=== PATIENT | male | born 1965 | race African-American/Black ===

== ENCOUNTER → 2016-10-05 09:34 | Emergency (ER) | payer SELFPAY ==
[2016-10-05 10:59] VITALS: BP 170/80
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
== END | disposition home or self-care (01) ==
LOC: ED 09:34
DX: S00.83XA Contusion of other part of head, initial encounter (principal); S00.511A Abrasion of lip, initial encounter; I10 Essential (primary) hypertension; R51 Headache; W19.XXXA Unspecified fall, initial encounter; Y93.9 Activity, unspecified; Y92.9 Unspecified place or not applicable; Z87.891 Personal history of nicotine dependence
CPT/HCPCS: 99281

== ENCOUNTER 2016-10-11 14:05 | Emergency (ER) | payer SELFPAY ==
--- NOTE | 2016-10-11 16:22 | RAD ---
HISTORY: Bilateral elbow pain COMPARISONS: None VIEWS: 8, Frontal, lateral, and oblique views of the left elbow and of the right elbow FINDINGS: Right: BONE DENSITY: Normal. BONES: There is no displaced fracture. There are enthesophytes of the olecranon. JOINTS: There is no arthropathy. There is no posterior supracondylar fat pad to suggest a joint effusion. ALIGNMENT: There is no dislocation. The alignment is anatomic. SOFT TISSUES: Unremarkable. Left: BONE DENSITY: Normal. BONES: There is no displaced fracture. There are enthesophytes of the olecranon. JOINTS: There is no arthropathy. There is no posterior supracondylar fat pad to suggest a joint effusion. ALIGNMENT: There is no dislocation. The alignment is anatomic. SOFT TISSUES: Unremarkable. OTHER FINDINGS: None. IMPRESSION: MILD DEGENERATIVE CHANGES BILATERALLY. NO ACUTE OSSEOUS INJURY BILATERALLY. IF SYMPTOMS PERSIST, RECOMMEND REPEAT IMAGING.
--- NOTE | 2016-10-11 18:39 | ED ---
Upper Extremity Pain - HPI Summary HPI Summary: 51M presents bilateral elbows pain for a week. 1 week ago fall where he landed on his elbows, pt states pain is still there. He states pain is getting better. He is not taking anything for pain. He denies any numbness or tingling. The left is great than the right. He is right handed. He has full ROM with pain. 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 He was seen last week and had images of his head at that time which was normal. He states his head pain has resolved. - History of Current Complaint Chief Complaint: EDExtremityUpper Stated Complaint: FALL, ELBOW PAIN Time Seen by Provider: 10/11/16 18:31 - Allergies/Home Medications Allergies/Adverse Reactions: Allergies Allergy/AdvReac Type Severity Reaction Status Date / Time No Known Allergies Allergy Verified 07/17/15 18:11 PMH/Surg Hx/FS Hx/Imm Hx Endocrine/Hematology History: Reports: Hx Diabetes Cardiovascular History: Reports: Hx Hypercholesterolemia, Hx Hypertension Respiratory History: Reports: Hx Sleep Apnea - undiagnosed but observed in ED with 5 second apnea & hypoxia History: Denies: Hx Dialysis, Hx Renal Disease Sensory History: Reports: Hx Contacts or Glasses - not with patient Opthamlomology History: Reports: Hx Contacts or Glasses - not with patient - Surgical History Surgery Procedure, Year, and Place: CABG X3 1992 (S/P [facility] [place]) Infectious Disease History: Denies: Traveled Outside the [place] in Last 30 Days - Family History Known Family History: Positive: None, Cardiac Disease, Hypertension, Diabetes - Social History Alcohol Use: Occasionally Substance Use Type: Reports: None Hx Tobacco Use: No Smoking Status (MU): Former Smoker Type: Cigarettes Have You Smoked in the Last Year: No Review of Systems Negative: Fever Negative: Chest Pain Negative: Shortness Of Breath Positive: Myalgia - elbow pain bilateral All Other Systems Reviewed And Are Negative: Yes Physical Exam Triage Information Reviewed: Yes Vital Signs On Initial Exam: Initial Vitals Temp Pulse Resp BP Pulse Ox 97.6 F 80 18 162/95 98 10/11/16 14:23 10/11/16 14:23 10/11/16 14:23 10/11/16 14:23 10/11/16 14:23 Vital Signs Reviewed: Yes Appearance: Positive: Well-Appearing Skin: Positive: Warm, Dry Head/Face: Positive: Normal Head/Face Inspection Eyes: Positive: Normal, Conjunctiva Clear Respiratory/Lung Sounds: Positive: Clear to Auscultation, Breath Sounds Present Cardiovascular: Positive: Normal, RRR Musculoskeletal: Positive: Strength/ROM Intact - elbows with pain, Other - tenderness over bilateral elbow, good pulses, no edema, capillary refill<2secs Diagnostics - Vital Signs Vital Signs Temp Pulse Resp BP Pulse Ox 10/11/16 14:23 97.6 F 80 18 162/95 98 - Laboratory Lab Statement: Any lab studies that have been ordered have been reviewed, and results considered in the medical decision making process. - Radiology elbow Xray Interpretation: No Acute Changes - degenerative changes Radiology Interpretation Completed By: Radiologist Course/Dx - Course Course Of Treatment: 51M presents bilateral elbows pain for a week. 1 week ago fall where he landed on his elbows, pt states pain is still there. He states pain is getting better. He is not taking anything for pain. He denies any numbness or tingling. The left is great than the right. He is right handed. He has full ROM with pain. xray normal. told to use RICE. patient understands and agrees with plan. - Diagnoses Differential Diagnosis/HQI/PQRI: Positive: Fracture (Closed), Strain, Sprain Provider Diagnoses: Elbow contusion Discharge - Discharge Plan Condition: Good Disposition: HOME Forms: *Work Release Referrals: Palomo Javed MD [Primary Care Provider] - Additional Instructions: Take Tylenol or ibuprofen every 6 hours as needed for pain Apply ice, rest, elevate Follow up with primary care physician within 5 days Return to ED if develop any new or worsening symptoms
[2016-10-11 18:40] VITALS: BP 179/97
== END 2016-10-11 18:45 | disposition home or self-care (01) ==
LOC: ED 14:05
DX: S50.02XA Contusion of left elbow, initial encounter (principal); S50.01XA Contusion of right elbow, initial encounter; W19.XXXA Unspecified fall, initial encounter; Y93.9 Activity, unspecified; Y92.9 Unspecified place or not applicable; E11.9 Type 2 diabetes mellitus without complications; E78.00 Pure hypercholesterolemia, unspecified; I10 Essential (primary) hypertension; Z95.1 Presence of aortocoronary bypass graft; Z87.891 Personal history of nicotine dependence
CPT/HCPCS: 99281

== ENCOUNTER 2017-05-12 06:55 | Emergency (ER) | payer BC ==
--- NOTE | 2017-05-12 08:09 | RAD ---
Indication: Fell and struck back of head. On Brilinta. Comparison: No relevant prior exams available on the [facility] PACS for comparison. Technique: Noncontrast CT vertex of skull through foramen magnum. Report: Small region of chronic appearing encephalomalacia at the RIGHT frontal lobe at the level of the kimble radiata and centrum semiovale. Negative for mass effect. Unremarkable cerebral sulci, ventricles, and basal cisterns. Negative for underwood matter white matter obscuration associated with mass effect or intra or extra-axial hemorrhage. Negative for calvarial or skull base fracture. Grossly clear paranasal sinuses and mastoid air spaces. Negative for scalp hematoma. IMPRESSION: 1. No CT evidence for traumatic brain injury or acute intracranial process. 2. 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
--- NOTE | 2017-05-12 08:12 | RAD ---
Indication: Fall, back pain. CT of the lumbar spine was obtained in the axial plane. Sagittal and coronal reconstructed images were obtained. The visualized sacrum demonstrates no fracture. Sacroiliac joints demonstrates mild degenerative changes. The vertebral bodies appear normal in height. No evidence of compression fracture is noted. Minimal broad-based protrusion at L5-S1 indents the epidural fat. No foraminal stenosis is noted. At L4-L5 broad-based protrusion flattens the thecal sac. Mild facet hypertrophy is noted. No central or foraminal stenosis is noted. At L3-L4 degenerative disc disease is noted with spondylytic ridge. No focal protrusion is noted. At L2-L3 no disc protrusion is noted. No central or foraminal stenosis is noted. At T12-L1 and T11-T12 no fracture is noted. Disc spaces all well-preserved. IMPRESSION: Degenerative disc disease at L3-L4, L4-L5 and L5-S1. No fracture of the lumbar spine is noted.
--- NOTE | 2017-05-12 08:13 | RAD ---
INDICATION: Fell and hit back of head. COMPARISON: No relevant prior exams available on the [facility] PACS for comparison. TECHNIQUE: Multidetector CT images foramen magnum to lung apices without contrast. Multiplanar reformation. REPORT: Normal vertebral alignment accounting for exam positioning without spondylolisthesis or subluxation at any level. Negative for cervical vertebral body or posterior element fracture. Negative for paravertebral hematoma. Multilevel mild vertebral endplate osteophytosis and facet joint osteoarthritis. At C2-C3 uncinate process spurring and facet joint osteoarthritis results in mild LEFT foraminal stenosis. IMPRESSION: No CT evidence for traumatic cervical spine injury.
--- NOTE | 2017-05-12 08:20 | RAD ---
Indication: Left elbow pain and swelling. 4 views of left elbow demonstrates no fracture. No joint effusion is noted. IMPRESSION: No fracture of left elbow is noted.
[2017-05-12 09:55] VITALS: BP 129/80
--- NOTE | 2017-05-12 10:34 | ED ---
Power Bailey Stephanie, scribed for Ron Carrillo MD on 05/12/17 at 0724 . Back Pain - HPI Summary HPI Summary: The pt is a 51 y/o M presenting to the ED with c/o lower back pain that occurred at 06:30 today s/p slip on ice. The pt states he fell backwards onto his back. The lower back pain is located near the buttock. Symptoms include DURAND and L elbow pain. The pt denies LOC, abd pain and SOB. The pt states he is on blood thinners. - History of Current Complaint Chief Complaint: EDBackInjuryPain Stated Complaint: FALL Time Seen by Provider: 05/12/17 07:10 Hx Obtained From: Patient Onset/Duration: Sudden Onset - 06:30, Still Present Onset/Duration: Started Hours Ago - 1, Still Present Timing: Constant Back Pain Location: Is Discrete @ - lower back near buttock Severity Currently: Moderate Pain Intensity: 9 Pain Scale Used: 0-10 Numeric Aggravating Symptom(s): Movement Alleviating Symptom(s): Nothing Associated Signs And Symptoms: Positive: Swelling - L elbow, Other - DURAND. Negative: Abdominal Pain - Allergies/Home Medications Allergies/Adverse Reactions: Allergies Allergy/AdvReac Type Severity Reaction Status Date / Time No Known Allergies Allergy Verified 07/17/15 18:11 PMH/Surg Hx/FS Hx/Imm Hx Endocrine/Hematology History: Reports: Hx Diabetes Cardiovascular History: Reports: Hx Hypercholesterolemia, Hx Hypertension Respiratory History: Reports: Hx Sleep Apnea - undiagnosed but observed in ED with 5 second apnea & hypoxia History: Denies: Hx Dialysis, Hx Renal Disease Sensory History: Reports: Hx Contacts or Glasses - not with patient Opthamlomology History: Reports: Hx Contacts or Glasses - not with patient - Surgical History Surgery Procedure, Year, and Place: CABG X3 1992 (S/P [facility]) Infectious Disease History: No Infectious Disease History: Denies: Traveled Outside the [place] in Last 30 Days - Family History Known Family History: Positive: Cardiac Disease, Hypertension, Diabetes - Social History Occupation: Employed Full-time Lives: With Family Alcohol Use: Occasionally Substance Use Type: Reports: None Hx Tobacco Use: No Smoking Status (MU): Former Smoker Type: Cigarettes Have You Smoked in the Last Year: No Review of Systems Negative: Fever Negative: Shortness Of Breath Negative: Abdominal Pain Positive: Other - lower back pain, L elbow pain Positive: Headache All Other Systems Reviewed And Are Negative: Yes Physical Exam - Summary Physical Exam Summary: General: well-appearing, no pain distress Skin: warm, color reflects adequate perfusion, dry Head: normal, no skin laceration on occipital region Eyes: EOMI, AGGIE ENT: normal Neck: supple, nontender to palpation Respiratory: CTA, breath sounds present Cardiovascular: RRR Abdomen: soft, nontender Bowel: present Musculoskeletal: normal, strength/ROM intact, L elbow swollen and tender to palpation Neurological: normal, sensory/motor intact, A&O x3 Psychological: affect/mood appropriate Triage Information Reviewed: Yes Vital Signs On Initial Exam: Initial Vitals Temp Pulse Resp BP Pulse Ox 97.1 F 71 18 142/84 98 05/12/17 06:59 05/12/17 06:59 05/12/17 06:59 05/12/17 06:59 05/12/17 06:59 Vital Signs Reviewed: Yes Diagnostics - Vital Signs Vital Signs Temp Pulse Resp BP Pulse Ox 05/12/17 06:59 97.1 F 71 18 142/84 98 - Laboratory Lab Statement: Any lab studies that have been ordered have been reviewed, and results considered in the medical decision making process. - Radiology Elbow XRay Radiology Interpretation Completed By: Radiologist - No fracture of left elbow is noted. ED physician reviewed report and agrees. - CT Brain CT Interpretation: No Acute Changes CT Interpretation Completed By: Radiologist - 1. No CT evidence for traumatic brain injury or acute intracranial process. 2. 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 ED physician reviewed report and agrees. Cervical Spine CT Interpretation: No Acute Changes CT Interpretation Completed By: Radiologist - No CT evidence for traumatic cervical spine injury. ED physician reviewed report and agrees. Lumbar Spine CT Interpretation: No Acute Changes CT Interpretation Completed By: Radiologist - Degenerative disc disease at L3- L4, L4-L5 and L5-S1. No fracture of the lumbar spine is noted. ED physician reviewed report and agrees. Back Pain Course/Dx - Course Course Of Treatment: BP noted and advised to follow up with PCP. RESULTS DISCUSSED WITH PATIENT. F/U PMD; RETURN IF WORSE. - Diagnoses Provider Diagnoses: Elevated blood pressure reading without diagnosis of hypertension, Head injury , Cervical strain, Low back pain, Left elbow contusion Discharge - Sign-Out/Discharge Documenting (check all that apply): Discharge - Discharge Plan Condition: Stable Disposition: HOME Prescriptions: HYDROcodone/ACETAMIN 5-325 MG* [[place] 5-325 TAB*] 1 tab PO Q4H PRN #20 tab MDD 6 PRN Reason: Pain Patient Education Materials: Cervical Strain (ED), Head Injury (ED), Acute Low Back Pain (ED), Elbow Sprain (ED) Forms: *Work Release Referrals: Palomo Javed MD [Primary Care Provider] - Additional Instructions: FOLLOW UP WITH YOUR DOCTOR. RETURN TO THE EMERGENCY DEPARTMENT FOR ANY WORSENING OF YOUR CONDITION OR QUESTIONS OR CONCERNS. YOUR BLOOD PRESSURE WAS ELEVATED TODAY; FOLLOW UP WITH YOUR PRIMARY CARE DOCTOR WITHIN ONE WEEK. - Billing Disposition and Condition Condition: STABLE Disposition: HOME The documentation as recorded by the Power roblero Stephanie accurately reflects the service I personally performed and the decisions made by me, Ron Carrillo MD.
== END 2017-05-12 10:05 | disposition home or self-care (01) ==
LOC: ED 06:55
DX: S09.90XA Unspecified injury of head, initial encounter (principal); S50.02XA Contusion of left elbow, initial encounter; S16.1XXA Strain of muscle, fascia and tendon at neck level, initial encounter; M54.5 Low back pain; R03.0 Elevated blood-pressure reading, without diagnosis of hypertension; W00.0XXA Fall on same level due to ice and snow, initial encounter; Y92.9 Unspecified place or not applicable; Z87.891 Personal history of nicotine dependence; E11.9 Type 2 diabetes mellitus without complications
CPT/HCPCS: 70450; 72125; 72131; 99284

== ENCOUNTER → 2018-04-20 00:40 | Emergency (ER) | payer BC, OTHER ==
[2018-04-20 00:45] VITALS: BP 155/91
--- NOTE | 2018-04-20 01:14 | ED ---
Adult Trauma - HPI Summary HPI Summary: Patient complains of body aches, back pain, left knee pain status post fall at work 6 days ago. Patient states he slipped and slid into a door. Denies head injury, DURAND, LOC, N/V, vision change, neck pain, CP, SOB, abdominal pain. Pt has been working in the days since. Patient has been taking ibuprofen with some relief. States symptoms are improving. - History of Current Complaint Chief Complaint: EDExtremityLower Stated Complaint: FALL, LEFT KNEE INJURY Time Seen by Provider: 04/20/18 01:02 Hx Obtained From: Patient Mechanism of Injury: Fall Ambulatory at the Scene: Yes Loss of Consciousness: no loss of consciousness Onset/Duration: Started Days Ago Onset of Pain: Immediate Onset Severity: Moderate Current Severity: Moderate Pain Intensity: 6 Pain Scale Used: 0-10 Numeric Location: Back, Extremities Character: Aching Aggravating Factor(s): Movement Alleviating Factor(s): Rest Associated Signs & Symptoms: Positive: Negative - Additional Pertinent History Primary Care Physician: GUILLERMO - Allergy/Home Medications Allergies/Adverse Reactions: Allergies Allergy/AdvReac Type Severity Reaction Status Date / Time No Known Allergies Allergy Verified 04/20/18 00:44 PMH/Surg Hx/FS Hx/Imm Hx Endocrine/Hematology History: Reports: Hx Diabetes Cardiovascular History: Reports: Hx Hypercholesterolemia, Hx Hypertension Respiratory History: Reports: Hx Sleep Apnea - undiagnosed but observed in ED with 5 second apnea & hypoxia History: Denies: Hx Dialysis, Hx Renal Disease Sensory History: Reports: Hx Contacts or Glasses - not with patient Opthamlomology History: Reports: Hx Contacts or Glasses - not with patient Neurological History: Denies: Hx Dementia Psychiatric History: Denies: Hx Autism - Surgical History Surgery Procedure, Year, and Place: CABG X3 1992 (S/P [facility]) Infectious Disease History: No Infectious Disease History: Denies: Traveled Outside the [place] in Last 30 Days - Family History Known Family History: Positive: None, Cardiac Disease, Hypertension, Diabetes - Social History Alcohol Use: Occasionally Substance Use Type: Reports: None Hx Tobacco Use: No Smoking Status (MU): Former Smoker Type: Cigarettes Have You Smoked in the Last Year: No Review of Systems Constitutional: Negative Eyes: Negative ENT: Negative Cardiovascular: Negative Respiratory: Negative Gastrointestinal: Negative Genitourinary: Negative Positive: Arthralgia, Myalgia Skin: Negative Neurological: Negative Psychological: Normal All Other Systems Reviewed And Are Negative: Yes Physical Exam - Summary Physical Exam Summary: Trauma noted to mouth, face, head. Full range of motion of neck and jaw. No tenderness along C-spine, T-spine or L-spine. Tenderness to right lateral trapezius and paraspinal muscles. Mild tenderness to palpation of left knee full range of motion of left knee with minimal pain. No swelling, erythema, ecchymosis, extra warmth noted to left knee joint. She moves all 4 extremities freely with minimal pain. Triage Information Reviewed: Yes Vital Signs On Initial Exam: Initial Vitals Temp Pulse Resp BP Pulse Ox 97.7 F 82 16 155/91 98 04/20/18 00:42 04/20/18 00:42 04/20/18 00:42 04/20/18 00:42 04/20/18 00:42 Vital Signs Reviewed: Yes Appearance: Positive: Well-Appearing Skin: Positive: Warm Head/Face: Positive: Normal Head/Face Inspection Eyes: Positive: Normal ENT: Positive: Normal ENT inspection Dental: Negative: Dental Fracture @, Bleeding Neck: Positive: Supple Respiratory/Lung Sounds: Positive: Clear to Auscultation Cardiovascular: Positive: Normal Abdomen Description: Positive: Nontender Musculoskeletal: Positive: Normal Neurological: Positive: Normal Psychiatric: Positive: Normal AVPU Assessment: Alert - Raz Coma Scale Best Eye Response: 4 - Spontaneous Best Motor Response: 6 - Obeys Commands Best Verbal Response: 5 - Oriented Coma Scale Total: 15 Diagnostics - Vital Signs Vital Signs Temp Pulse Resp BP Pulse Ox 04/20/18 00:42 97.7 F 82 16 155/91 98 - Laboratory Lab Statement: Any lab studies that have been ordered have been reviewed, and results considered in the medical decision making process. Adult Trauma Course/Dx - Course Course Of Treatment: Patient complains of body aches, back pain, left knee pain status post fall at work 6 days ago. Patient states he slipped and slid into a door. Denies head injury, DURAND, LOC, N/V, vision change, neck pain, CP, SOB, abdominal pain. Pt has been working in the days since. Patient has been taking ibuprofen with some relief. States symptoms are improving. Physical exam:Trauma noted to mouth, face, head. Full range of motion of neck and jaw. No tenderness along C-spine, T-spine or L-spine. Tenderness to right lateral trapezius and paraspinal muscles. Mild tenderness to palpation of left knee full range of motion of left knee with minimal pain. No swelling, erythema, ecchymosis, extra warmth noted to left knee joint. She moves all 4 extremities freely with minimal pain. Vital signs within normal limits. Physical exam unremarkable. Rx for Flexeril. Patient then asked for a work note. Already has the next 2 days off, asked for the two following days after that off. - Diagnoses Provider Diagnoses: Fall, Muscle spasm Discharge - Sign-Out/Discharge Documenting (check all that apply): Patient Departure Patient Received Moderate/Deep Sedation with Procedure: No - Discharge Plan Condition: Stable Disposition: HOME Prescriptions: Cyclobenzaprine TAB* [Flexeril 10 MG TAB*] 10 mg PO TID PRN 5 Days #15 tab PRN Reason: Pain Patient Education Materials: Muscle Spasm (ED) Referrals: Palomo Javed MD [Primary Care Provider] - Additional Instructions: Take muscle relaxers as directed. They were they can make you drowsy, do not operate machinery or drive when you have taken this medication. Take ibuprofen for inflammation and pain. Return to the ED for any new or worsening symptoms. - Billing Disposition and Condition Condition: STABLE Disposition: Home
== END | disposition home or self-care (01) ==
LOC: ED 00:40
DX: M62.838 Other muscle spasm (principal); M54.9 Dorsalgia, unspecified; M25.562 Pain in left knee; Z95.1 Presence of aortocoronary bypass graft; Z87.891 Personal history of nicotine dependence
CPT/HCPCS: 99282

== ENCOUNTER 2018-05-12 22:39 | Emergency (ER) | payer BC, OTHER ==
--- NOTE | 2018-05-13 00:42 | ED ---
Complex/Multi-Sys Presentation - HPI Summary HPI Summary: 52-year-old male presents with exhaustion today. He states he has worked 96 hours in the past 5 days. He states that he just needs some rest. He is here for work note. Denies any chest pain or shortness breath. He states that he has not been taking his blood pressure or diabetes mellitus as he should be because of working so much. He states he has not checked his sugar. He denies any headache. No other symptoms besides exhaustion. denies any fevers. - History Of Current Complaint Chief Complaint: EDGeneral Time Seen by Provider: 05/13/18 00:35 - Allergies/Home Medications Allergies/Adverse Reactions: Allergies Allergy/AdvReac Type Severity Reaction Status Date / Time No Known Allergies Allergy Verified 05/12/18 22:48 Home Medications: Home Medications Metoprolol Succinate 25 mg PO DAILY 05/13/18 [History Confirmed 05/13/18] Spironolactone/HCTZ 25-25 MG* [Aldactazide 25-25*] 1 tab PO DAILY 05/13/18 [ History Confirmed 05/13/18] PMH/Surg Hx/FS Hx/Imm Hx Endocrine/Hematology History: Reports: Hx Diabetes Cardiovascular History: Reports: Hx Hypercholesterolemia, Hx Hypertension Respiratory History: Reports: Hx Sleep Apnea - undiagnosed but observed in ED with 5 second apnea & hypoxia History: Denies: Hx Dialysis, Hx Renal Disease Sensory History: Reports: Hx Contacts or Glasses - not with patient Opthamlomology History: Reports: Hx Contacts or Glasses - not with patient Neurological History: Denies: Hx Dementia Psychiatric History: Denies: Hx Autism - Surgical History Surgery Procedure, Year, and Place: CABG X3 1992 (S/P [facility]) Infectious Disease History: No Infectious Disease History: Denies: Traveled Outside the [place] in Last 30 Days - Family History Known Family History: Positive: None, Cardiac Disease, Hypertension, Diabetes - Social History Alcohol Use: Occasionally Substance Use Type: Reports: None Hx Tobacco Use: No Smoking Status (MU): Former Smoker Type: Cigarettes Have You Smoked in the Last Year: No Review of Systems Negative: Fever Negative: Chest Pain Negative: Shortness Of Breath Neurological: Other - exhaustion All Other Systems Reviewed And Are Negative: Yes Physical Exam Triage Information Reviewed: Yes Vital Signs On Initial Exam: Initial Vitals Temp Pulse Resp BP Pulse Ox 97.8 F 84 16 160/95 99 05/12/18 22:45 05/12/18 22:45 05/12/18 22:45 05/12/18 22:45 05/12/18 22:45 Vital Signs Reviewed: Yes Appearance: Positive: Well-Appearing Skin: Positive: Warm, Dry Head/Face: Positive: Normal Head/Face Inspection Eyes: Positive: Normal, Conjunctiva Clear ENT: Positive: Pharynx normal Respiratory/Lung Sounds: Positive: Clear to Auscultation, Breath Sounds Present Cardiovascular: Positive: Normal, RRR Abdomen Description: Positive: Nontender, Soft Bowel Sounds: Positive: Present Musculoskeletal: Positive: Normal Neurological: Positive: Normal Psychiatric: Positive: Normal Diagnostics - Vital Signs Vital Signs Temp Pulse Resp BP Pulse Ox 05/12/18 22:45 97.8 F 84 16 160/95 99 - Laboratory Lab Statement: Any lab studies that have been ordered have been reviewed, and results considered in the medical decision making process. Complex Multi-Symp Course/Dx Course Of Treatment: 52-year-old male presents with exhaustion today. He states he has worked 96 hours in the past 5 days. He states that he just needs some rest. He is here for work note. Denies any chest pain or shortness breath. He states that he has not been taking his blood pressure or diabetes mellitus as he should be because of working so much. He states he has not checked his sugar. He denies any headache. No other symptoms besides exhaustion. denies any fevers. On exam has normal neuro normal exam. Sugar is 352. Told to take any medication at home. gave work noted. Patient understands and agrees the plan. - Diagnoses Differential Diagnoses/HQI/PQRI: Metabolic Abnormality, Urinary Tract Infection Provider Diagnoses: Exhaustion Discharge - Sign-Out/Discharge Documenting (check all that apply): Patient Departure Patient Received Moderate/Deep Sedation with Procedure: No - Discharge Plan Condition: Good Disposition: HOME Forms: *Work Release Referrals: Palomo Javed MD [Primary Care Provider] - Additional Instructions: Follow up with primary make sure to check sugar and take medication as prescribed eat a balance diet get an adequate amount of sleep Return to ED if develop any new or worsening symptoms - Billing Disposition and Condition Condition: GOOD Disposition: Home
[2018-05-13 01:17] VITALS: BP 156/95
== END 2018-05-13 01:17 | disposition home or self-care (01) ==
LOC: ED 22:39
DX: R53.83 Other fatigue (principal); E11.9 Type 2 diabetes mellitus without complications; I10 Essential (primary) hypertension; Z87.891 Personal history of nicotine dependence
CPT/HCPCS: 99282

== ENCOUNTER 2019-04-10 00:29 | Inpatient (IN) | payer BC ==
--- NOTE | 2019-04-10 00:51 | ED ---
HPI Chest Pain - HPI Summary HPI Summary: 53 year old male presents to the ED with a chief complaint of sternal chest pressure starting 1 hour ago. Patient reports feeling anxious at onset, secondary to stress from his job. He was watching TV at home at onset. Pain was an 8/10 at its worst, but is currently 0. It does not radiate. Pain alleviated by NTG and ASA. He also reports SOB and palpitations. Patient denies diaphoresis. He reports seeing his PCP 5 days ago for palpitations. Patient is a former tobacco smoker. He recreationally does marijuana, and took some earlier this evening. He does not drink alcohol or do any other recreational drugs. PMHx of HTN, HLD, and DM. FHx of HTN, HLD, and DM. PSHx of triple bipass in 2008 and stent placement 2 years ago. No cardiac catheterizations or stress tests in the last 2 years. - History of Current Complaint Time Seen by Provider: 04/10/19 00:36 Hx Obtained From: Patient Onset/Duration: Started Minutes Ago Timing: Constant, Lasting Minutes Initial Severity: Severe Current Severity: None Pain Intensity: 0 Pain Scale Used: 0-10 Numeric Chest Pain Location: Mid Sternal Chest Pain Radiates: No Character: Pressure/Squeezing Aggravating Factor(s): Rest Alleviating Factor(s): NTG 123, EMS Tx Associated Signs and Symptoms: Positive: Chest Pain, Anxiety, Recent Stress, Shortness of Breath, Palpitations. Negative: Diaphoresis - Additional Pertinent History Primary Care Physician: GUILLERMO - Allergy/Home Medications Allergies/Adverse Reactions: Allergies Allergy/AdvReac Type Severity Reaction Status Date / Time No Known Allergies Allergy Verified 04/10/19 00:40 Home Medications: Home Medications Amlodipine Besylate/Benazepril [Amlodipine-Benazepril 5-20 mg] 1 tab PO DAILY [History Confirmed 04/10/19] Dulaglutide [Trulicity] 1.5 mg SQ WEEKLY 04/10/19 [History Confirmed 04/10/19] Evolocumab [Repatha Pushtronex] 420 mg SQ MONTHLY 04/10/19 [History Confirmed ] Insulin Degludec [Tresiba Flextouch 100 units/ml x 3 Pens] 40 unit SQ DAILY [History Confirmed 04/10/19] Nitroglycerin TAB 0.4 MG* 1 tab SL Q5M PRN 04/10/19 [History Confirmed 04/10/19] Rosuvastatin Calcium [Crestor] 1 tab PO DAILY 04/10/19 [History Confirmed ] Ticagrelor* [Brilinta*] 90 mg PO BID 04/10/19 [History Confirmed 04/10/19] PMH/Surg Hx/FS Hx/Imm Hx Endocrine/Hematology History: Reports: Hx Diabetes Cardiovascular History: Reports: Hx Hypercholesterolemia, Hx Hypertension Respiratory History: Reports: Hx Sleep Apnea - undiagnosed but observed in ED with 5 second apnea & hypoxia History: Denies: Hx Dialysis, Hx Renal Disease Sensory History: Reports: Hx Contacts or Glasses - not with patient Opthamlomology History: Reports: Hx Contacts or Glasses - not with patient Neurological History: Denies: Hx Dementia Psychiatric History: Denies: Hx Autism - Surgical History Surgery Procedure, Year, and Place: CABG X3 1992 (S/P [facility]) Infectious Disease History: No Infectious Disease History: Denies: Traveled Outside the [place] in Last 30 Days - Family History Known Family History: Positive: None, Cardiac Disease, Hypertension, Diabetes - Social History Alcohol Use: Occasionally Substance Use Type: Reports: None Hx Tobacco Use: No Smoking Status (MU): Former Smoker Type: Cigarettes Have You Smoked in the Last Year: No Review of Systems - ROS Summary Review of Systems Summary: Home Medications Medication Instructions Recorded Confirmed Type Aspirin 81 mg CHEW TAB* 81 mg PO DAILY 07/03/12 10/05/16 History Hydrochlorothiazide TAB* 25 mg PO DAILY 02/19/14 10/05/16 History [Hydrodiuril TAB*] Canagliflozin (NF) [Invokana (NF)] 100 mg PO DAILY 02/10/16 10/05/16 History Lisinopril TAB* [Prinivil TAB 10 10 mg PO DAILY 02/10/16 02/10/16 History MG*] Atorvastatin* [Lipitor 40 MG*] 40 mg PO DAILY #30 tab 02/11/16 10/05/16 Rx Ezetimibe TAB* [Zetia TAB*] 10 mg PO DAILY #30 tab 02/11/16 10/05/16 Rx oxyCODONE TAB* [Roxycodone TAB 5 5 - 10 mg PO Q6H PRN #30 tab MDD 8 02/11/16 Rx mg*] Cyclobenzaprine TAB* [Flexeril 10 10 mg PO BID 10/05/16 10/05/16 History MG TAB*] HYDROcodone/ACETAMIN 5-325 MG* 1 tab PO Q4H PRN #20 tab MDD 6 05/12/17 Rx [[place] 5-325 TAB*] Cyclobenzaprine TAB* [Flexeril 10 10 mg PO TID PRN 5 Days #15 tab 04/20/18 Rx MG TAB*] Metoprolol Succinate 25 mg PO DAILY 05/13/18 05/13/18 History Spironolactone/HCTZ 25-25 MG* 1 tab PO DAILY 05/13/18 05/13/18 History [Aldactazide 25-25*] Negative: Skin Diaphoresis Positive: Palpitations, Chest Pain Positive: Shortness Of Breath Positive: Anxious All Other Systems Reviewed And Are Negative: Yes Physical Exam - Summary Physical Exam Summary: General: Well-developed, Well-nourished male. No acute distress. Mildly anxious appearing. HEENT: Normocephalic, Atraumatic. Eyes: Conjuctiva normal, PERRL. Ears: TMs within normal limits. Nares: (-) discharge, (-) erythema. Oropharynx: Clear, mucous membranes moist, (-) exudates. Neck: Soft, FROM, (-) lymphadenopathy, (-) thyromegaly, (-) JVD. Cardiovascular: Normal sinus rhythm, (-) murmur. Lungs: Clear to auscultation bilaterally (-) wheezes, (-) rales, (-) rhonchi. Abdomen: Soft, non-tender, non-distended, (-) organomegaly, normal bowel sounds. Back: (-) CVA tenderness Extremities: No edema. Skin: Warm, dry, (-) rash. Neuro: Alert and oriented x3, no focal deficits. Psychiatric: Mood normal, affect normal. Triage Information Reviewed: Yes Vital Signs On Initial Exam: Initial Vitals Temp Pulse Resp BP Pulse Ox 98.0 F 106 16 147/77 97 04/10/19 00:30 04/10/19 00:30 04/10/19 00:30 04/10/19 00:30 04/10/19 00:30 Vital Signs Reviewed: Yes Procedures - Sedation Patient Received Moderate/Deep Sedation with Procedure: No Diagnostics - Vital Signs Vital Signs Temp Pulse Resp BP Pulse Ox 04/10/19 00:30 98.0 F 106 16 147/77 97 - Laboratory Result Diagrams: 04/11/19 05:25 04/11/19 05:25 Lab Statement: Any lab studies that have been ordered have been reviewed, and results considered in the medical decision making process. - Radiology CXR Radiology Interpretation Completed By: ED Physician Summary of Radiographic Findings: No obvious infiltrate or effusion. An ED physician has reviewed and interpreted this report. Pending official read. - EKG 0032 Cardiac Rate: Tachycardia - 110 bpm EKG Rhythm: Sinus Tachycardia Summary of EKG Findings: EKG at 0032 shows sinus tachycardia at [address] elevation at AVR. ST depression at I, II, AVL, V4, V5, and V6. Dr. Young reviewed and interpreted this EKG. Chest Pain Course/Dx - Course Course Of Treatment: 53-year-old male presents with chest pain. Started tonight. He thinks he must have got himself worked up as all the stress that he is undergoing currently. Chest pain improvedafter aspirin and nitroglycerin en route. Patient has an extensive past medical history of triple bypass 10 years ago. Stents 2 years ago. No acute illness symptoms. On physical exam there is no significant findings. On workup patient has troponin of 1.73. Referred to hospitalist for admission.. - Diagnoses Provider Diagnoses: Acute chest pain - Provider Notifications Discussed Care Of Patient With: Frank Pineda - Hospitalist Time Discussed With Above Provider: 00:58 Instructed by Provider To: Admit As Observation - Dr. Pineda accepts this patient for admission as observation. Admit/Transition Orders Completed By ED Provider: Yes Discharge ED - Sign-Out/Discharge Documenting (check all that apply): Patient Departure - admit - Discharge Plan Condition: Stable Disposition: ADMITTED TO [facility] - Billing Disposition and Condition Condition: STABLE Disposition: Admitted to [facility] - Attestation Statements Document Initiated by Scribe: Yes Documenting Scribe: Tj Jackson Provider For Whom Scribe is Documenting (Include Credential): Sofya Young MD Scribe Attestation: Tj Bailey, scribed for Sofya Young MD on 04/13/19 at 0442. Scribe Documentation Reviewed: Yes Provider Attestation: The documentation as recorded by the scribe, Tj Jackson accurately reflects the service I personally performed and the decisions made by me, Sofya Young MD Status of Scribe Document: Viewed
[2019-04-10 00:53] LABS: ABS Eosinophils 0.2 10^3/ul (0-0.6); ABS Lymphocytes 1.6 10^3/ul (1.0-4.8); ABS Monocytes 0.4 10^3/ul (0-0.8); ABS Neutrophils 2.8 10^3/ul (1.5-7.7); Eosinophil % 4.1 %; Hematocrit 39 % (42-52); Hemoglobin 13.5 g/dL (14.0-18.0); Lymphocyte % 32.1 %; Mean Corpuscular HGB Conc 35 g/dL (31-36); Mean Corpuscular Hemoglobin 31 pg (27-31); Mean Corpuscular Volume 89 fL (80-94); Mean Platelet Volume 8.4 fL (7.4-10.4); Nucleated Red Blood Cells % 0.1; Platelet Count 256 10^3/uL (150-450); Red Blood Count 4.39 10^6 /uL (4.18-5.48); Red Cell Distribution Width 13 % (10-15); White Blood Count 5.1 10^3/uL (3.5-10.8)
[2019-04-10 01:11] LABS: Troponin I 0.03 ng/mL (<0.03)
[2019-04-10 01:14] LABS: Albumin 4.4 g/dL (3.2-5.2); Anion Gap 7 mmol/L (2-11); CO2 Carbon Dioxide 28 mmol/L (22-32); Calcium 9.2 mg/dL (8.6-10.3); Chloride 98 mmol/L (101-111); Potassium 4.4 mmol/L (3.5-5.0); Sodium 133 mmol/L (135-145)
[2019-04-10 01:20] LABS: ALT 17 U/L (7-52); AST 16 U/L (13-39); Albumin/Globulin Ratio 1.4 (1-3); Alkaline Phosphatase 78 U/L (34-104); BUN/Creatinine Ratio 15.7 (8-20); Blood Urea Nitrogen 16 mg/dL (6-24); EGFR African American 92.8 (>60); EGFR Non-African American 76.7 (>60); Globulin 3.2 g/dL (2-4); Glucose 472 mg/dL (70-100); Total Protein 7.6 g/dL (6.4-8.9)
[2019-04-10] MEDS ORDERED: Atorvastatin* 80 MG TAB PO ONE (02:14)
[2019-04-10] MEDS ORDERED: Dextrose 50% Syringe 50 ML* 25 GM/50 ML SYRINGE IV PUSH PRN (02:15)
[2019-04-10] MEDS ORDERED: Nitroglycerin TAB 0.4 MG* 0.4 MG TAB SL PRN (02:17)
[2019-04-10 02:25] LABS: Cholesterol 102 mg/dL; HDL Cholesterol 54.2 mg/dL; LDL Cholesterol 16 mg/dL; Triglycerides 159 mg/dL
[2019-04-10] MEDS: Insulin GLARGINE(*) 1 UNITS UNIT SUBCUT SCH (02:55)
[2019-04-10] MEDS: Metoprolol Tartrate TAB* 25 MG PO SCH ×2 (02:55→08:22)
[2019-04-10 04:24] LABS: Troponin I 1.73 ng/mL (<0.03)
[2019-04-10] MEDS: Heparin DRIP 25,000 UNITS(*) 25,000 UNITS/500 ML BAG IV SCH (05:06)
[2019-04-10] MEDS: Heparin VIAL(*) 5000 UNITS/ML VIAL (FIVE THOUSAND) IV SCH ×2 (05:16→14:48)
[2019-04-10 06:24] LABS: Troponin I 5.33 ng/mL (<0.03)
[2019-04-10] MEDS ORDERED: Insulin LISPRO* 1 UNITS UNIT SUBCUT SCH (07:30)
[2019-04-10] MEDS: Insulin LISPRO* 1 UNITS UNIT SUBCUT SCH ×5 (08:20→23:49)
[2019-04-10] MEDS: Lisinopril TAB* 10 MG PO SCH (08:20)
[2019-04-10] MEDS: Aspirin 81 mg CHEW TAB* 81 MG TAB.CHEW PO SCH (08:21)
[2019-04-10] MEDS: Ticagrelor* 90 MG TAB PO SCH ×2 (08:22→20:05)
[2019-04-10 08:39] LABS: Troponin I 8.18 ng/mL (<0.03)
[2019-04-10] MEDS ORDERED: amLODIPine TAB* 5 MG PO SCH (09:00)
[2019-04-10] MEDS ORDERED: Metoprolol Tartrate TAB* 25 MG PO ONE ×3 (10:00→12:15)
--- NOTE | 2019-04-10 10:02 | PN ---
Cardiology Progress Note Date of Service: 04/10/19 - CC: CP, elevated trops, abnormal ECG See dict H+P Pt with CABG 2009, stents appro. 2018 with CP w/emotional stress. ECG showed lateral ST depression, resolved. Pt non complient with meds. CAD risks: DM HTN LIPID OBESE former smoker HOME MEDS: Aspirin 81 mg CHEW TAB* 81 mg PO DAILY 07/03/12 [History Confirmed 04/10/19] Metoprolol Succinate 25 mg PO DAILY 05/13/18 [History Confirmed 04/10/19] Spironolactone/HCTZ 25-25 MG* [Aldactazide 25-25*] 0.5 tab PO DAILY 05/13/18 [ History Confirmed 04/10/19] Amlodipine Besylate/Benazepril [Amlodipine-Benazepril 5-20 mg] 1 tab PO DAILY [History Confirmed 04/10/19] Dulaglutide [Trulicity] 1.5 mg SQ WEEKLY 04/10/19 [History Confirmed 04/10/19] Evolocumab [Repatha Pushtronex] 420 mg SQ MONTHLY 04/10/19 [History Confirmed ] Insulin Degludec [Tresiba Flextouch 100 units/ml x 3 Pens] 40 unit SQ DAILY [History Confirmed 04/10/19] Nitroglycerin TAB 0.4 MG* 1 tab SL Q5M PRN 04/10/19 [History Confirmed 04/10/19] Rosuvastatin Calcium [Crestor] 1 tab PO DAILY 04/10/19 [History Confirmed ] Ticagrelor* [Brilinta*] 90 mg PO BID 04/10/19 [History Confirmed 04/10/19] CURRENT MEDS: Amlodipine Besylate (Norvasc Tab*) 5 mg PO DAILY [facility] Last Admin: 04/10/19 08:21 Dose: 5 mg Aspirin (Aspirin 81 Mg Chew Tab*) 81 mg PO DAILY [facility] Last Admin: 04/10/19 08:21 Dose: 81 mg Atorvastatin Calcium (Lipitor*) 80 mg PO 1700 [facility] Dextrose (D50w Syringe 50 Ml*) 12.5 gm IV PUSH .FOR FS < 60 - SS PRN PRN Reason: FS < 60 Heparin Sodium (Porcine) (Heparin Vial(*)) 0 units IV .PER PROTOCOL [facility] Last Admin: 04/10/19 05:16 Dose: 4,000 units Heparin Sodium/Dextrose (Heparin Drip 25,000 Units(*)) 25,000 units in 500 mls @ 0 mls/hr IV PER RATE [facility]; Protocol Last Admin: 04/10/19 05:06 Dose: 18 mls/hr Insulin Glargine (Lantus(*)) 30 units SUBCUT Q24HR [facility] Last Admin: 04/10/19 02:55 Dose: 30 units Insulin Human Lispro (Humalog*) 0 units SUBCUT Q4HR [facility]; Protocol Last Admin: 04/10/19 08:20 Dose: 2 units Lisinopril (Prinivil Tab*) 20 mg PO DAILY [facility] Last Admin: 04/10/19 08:20 Dose: 20 mg Metoprolol Tartrate (Lopressor Tab*) 25 mg PO 0300,0900,1500,2100 [facility] Nitroglycerin (Nitroglycerin Tab 0.4 Mg*) 0.4 mg SL Q5M PRN PRN Reason: chest pain Ticagrelor (Brilinta*) 90 mg PO BID [facility] Last Admin: 04/10/19 08:22 Dose: 90 mg Vital Signs - 12 hr Temp Pulse Resp BP Pulse Ox 04/10/19 07:16 97.1 F 82 16 153/89 96 04/10/19 03:34 97.6 F 97 20 154/92 98 04/10/19 02:35 98.1 F 100 18 159/91 98 04/10/19 02:25 98.2 F 104 16 147/98 99 04/10/19 02:09 109 24 141/93 94 04/10/19 02:01 108 19 97 04/10/19 01:55 98.2 F 104 13 147/98 93 04/10/19 01:39 106 17 137/87 98 04/10/19 01:09 105 20 141/87 96 04/10/19 01:01 104 15 97 04/10/19 00:40 108 17 97 04/10/19 00:39 109 147/77 97 04/10/19 00:30 98.0 F 106 16 147/77 97 OBESE, NAD pleasant, cooperative. Clear lungs. No murmurs Distal pulses not palpated on legs, no LE edema Laboratory Tests 04/10/19 04/10/19 04/10/19 00:39 00:39 00:39 WBC RBC Hgb Hct MCV MCH MCHC RDW Plt Count MPV Neut % (Auto) Lymph % (Auto) [place] % (Auto) Eos % (Auto) Baso % (Auto) Absolute Neuts (auto) Absolute Lymphs (auto) Absolute Monos (auto) Absolute Eos (auto) Absolute Basos (auto) Absolute Nucleated RBC Nucleated RBC % INR (Anticoag Therapy) APTT 30.1 Sodium Potassium Chloride Carbon Dioxide Anion Gap BUN Creatinine Est GFR ( Amer) Est GFR (Non-Af Amer) BUN/Creatinine Ratio Glucose POC Glucose (mg/dL) Hemoglobin A1c Lactic Acid Calcium Magnesium 2.0 Total Bilirubin AST ALT Alkaline Phosphatase Troponin I B-Natriuretic Peptide 29 Total Protein Albumin Globulin Albumin/Globulin Ratio Triglycerides Cholesterol LDL Cholesterol HDL Cholesterol 04/10/19 04/10/19 04/10/19 00:41 00:41 00:41 WBC 5.1 RBC 4.39 Hgb 13.5 L Hct 39 L MCV 89 MCH 31 MCHC 35 RDW 13 Plt Count 256 MPV 8.4 Neut % (Auto) 54.8 Lymph % (Auto) 32.1 Hampton % (Auto) 8.3 Eos % (Auto) 4.1 Baso % (Auto) 0.7 Absolute Neuts (auto) 2.8 Absolute Lymphs (auto) 1.6 Absolute Monos (auto) 0.4 Absolute Eos (auto) 0.2 Absolute Basos (auto) 0.0 Absolute Nucleated RBC 0.0 Nucleated RBC % 0.1 INR (Anticoag Therapy) 1.00 APTT Sodium 133 L Potassium 4.4 Chloride 98 L Carbon Dioxide 28 Anion Gap 7 BUN 16 Creatinine 1.02 Est GFR ( Amer) 92.8 Est GFR (Non-Af Amer) 76.7 BUN/Creatinine Ratio 15.7 Glucose 472 H POC Glucose (mg/dL) Hemoglobin A1c Lactic Acid Calcium 9.2 Magnesium Total Bilirubin 0.50 AST 16 ALT 17 Alkaline Phosphatase 78 Troponin I 0.03 H* B-Natriuretic Peptide Total Protein 7.6 Albumin 4.4 Globulin 3.2 Albumin/Globulin Ratio 1.4 Triglycerides 159 Cholesterol 102 LDL Cholesterol 16 HDL Cholesterol 54.2 04/10/19 04/10/19 04/10/19 00:41 03:43 03:43 WBC RBC Hgb Hct MCV MCH MCHC RDW Plt Count MPV Neut % (Auto) Lymph % (Auto) [place] % (Auto) Eos % (Auto) Baso % (Auto) Absolute Neuts (auto) Absolute Lymphs (auto) Absolute Monos (auto) Absolute Eos (auto) Absolute Basos (auto) Absolute Nucleated RBC Nucleated RBC % INR (Anticoag Therapy) APTT Sodium Potassium Chloride Carbon Dioxide Anion Gap BUN Creatinine Est GFR ( Amer) Est GFR (Non-Af Amer) BUN/Creatinine Ratio Glucose POC Glucose (mg/dL) Hemoglobin A1c 12.2 H Lactic Acid 1.2 Calcium Magnesium Total Bilirubin AST ALT Alkaline Phosphatase Troponin I 1.73 H* B-Natriuretic Peptide Total Protein Albumin Globulin Albumin/Globulin Ratio Triglycerides Cholesterol LDL Cholesterol HDL Cholesterol 04/10/19 04/10/19 04/10/19 05:24 05:24 07:57 WBC RBC Hgb Hct MCV MCH MCHC RDW Plt Count MPV Neut % (Auto) Lymph % (Auto) Hampton % (Auto) Eos % (Auto) Baso % (Auto) Absolute Neuts (auto) Absolute Lymphs (auto) Absolute Monos (auto) Absolute Eos (auto) Absolute Basos (auto) Absolute Nucleated RBC Nucleated RBC % INR (Anticoag Therapy) APTT 176.5 H* Sodium Potassium Chloride Carbon Dioxide Anion Gap BUN Creatinine Est GFR ( Amer) Est GFR (Non-Af Amer) BUN/Creatinine Ratio Glucose POC Glucose (mg/dL) 138 H Hemoglobin A1c Lactic Acid Calcium Magnesium Total Bilirubin AST ALT Alkaline Phosphatase Troponin I 5.33 H* B-Natriuretic Peptide Total Protein Albumin Globulin Albumin/Globulin Ratio Triglycerides Cholesterol LDL Cholesterol HDL Cholesterol 04/10/19 08:12 WBC RBC Hgb Hct MCV MCH MCHC RDW Plt Count MPV Neut % (Auto) Lymph % (Auto) Hampton % (Auto) Eos % (Auto) Baso % (Auto) Absolute Neuts (auto) Absolute Lymphs (auto) Absolute Monos (auto) Absolute Eos (auto) Absolute Basos (auto) Absolute Nucleated RBC Nucleated RBC % INR (Anticoag Therapy) APTT Sodium Potassium Chloride Carbon Dioxide Anion Gap BUN Creatinine Est GFR ( Amer) Est GFR (Non-Af Amer) BUN/Creatinine Ratio Glucose POC Glucose (mg/dL) Hemoglobin A1c Lactic Acid Calcium Magnesium Total Bilirubin AST ALT Alkaline Phosphatase Troponin I 8.18 H* B-Natriuretic Peptide Total Protein Albumin Globulin Albumin/Globulin Ratio Triglycerides Cholesterol LDL Cholesterol HDL Cholesterol ECG x 3: Arrival ST, lateral ST depression 4 AM and 8 AM: NSR, normal ST's, all show poor R wave progression precordial leads. A/P Pt with NSTEMI, CP free, ECG normalized with medication. CP free, trops still rising. Pt needs cath, I had prolonged discussion on the need for compliance if another stent needed, pt states for his young daughter he knows he has to be compliant and will Needs more aggressive beta blockade. I am getting old cath and cabg records from [facility]. Discussing with Dr Veloz, inteventional cardiology.
[2019-04-10] MEDS ORDERED: Ticagrelor* 90 MG TAB PO ONE (10:20)
[2019-04-10 12:41] LABS: Troponin I 8.82 ng/mL (<0.03)
--- NOTE | 2019-04-10 13:32 | HP ---
HISTORY AND PHYSICAL: DATE OF ADMISSION: 04/10/19 ADMITTING PROVIDER: Frank Pineda MD PRIMARY CARE PROVIDER: Dr. Palomo Javed. OUTPATIENT BOND MANAGER: Dr. Montgomery. OUTPATIENT SINTERING PRESS OPERATOR: Dr. Mccollum. CHIEF COMPLAINT: Chest pressure, shortness of breath. HISTORY OF PRESENT ILLNESS: Delvis Lehman is a 53-year-old -Citizen Of [place] male with past medical history of CAD, status post triple-vessel CABG in 2008 and a circumflex stent approximately 2018; poorly controlled insulin-dependent diabetes mellitus; hypertension; hyperlipidemia; obstructive sleep apnea, using CPAP. He admits to being fairly noncompliant with his insulin, especially over the last month, intermittently compliant with some of his cardiac medications, and does not watch his diet closely. He was watching television, when he started to develop some chest pressure around 11 p.m. a day prior to admission. He felt a little bit hot, so he opened up the door to let in some cool air, which relieved him somewhat, but the chest pressure had eventually returned and increased in sensitivity, 10/02. He took aspirin 81 mg and he called EMS, where he got 2 nitroglycerin and that relieved his symptoms. He denied diaphoresis or radiation of the pain. He last took nitroglycerin p.r.n. about 6 months ago. He thinks he has had a recent stress test since his last stent, but he cannot give many details. He admits to not being really compliant with his insulin and notably did miss his a.m. Brilinta dose. He did not also know what the indication for his Brilinta was, thinking it was for hyperlipidemia. In [facility], he had a troponin, slightly elevated at 0.03. His EKG showed sinus tachycardia with heart rate [address]ressions in V5, V4, and V2 and one in aVL. He denies any chest pressure or pain currently. He does admit to some increased stress in relation to his work. He recently has obtained a medical marijuana card on 03/30/19 and he smoked marijuana about an hour to an hour and a half before the symptoms started. PAST MEDICAL HISTORY: 1. Insulin-dependent diabetes mellitus in 2010. Last A1c is 11.1 from 2016. 2. Hypertension. 3. Hyperlipidemia. 4. CAD, status post 3-vessel CABG in 2008 and a circumflex stent approximately 2018. 5. Obstructive sleep apnea, status post CPAP use. MEDICATIONS: Include: 1. Brilinta 9 mg p.o. b.i.d. 2. Nitroglycerin 0.4 mg sublingual q.5 minutes p.r.n. 3. Trulicity 1.5 mg subcutaneous weekly. 4. Tresiba between 36 and 40 units daily. 5. Repatha 420 mg subcu monthly. 6. Crestor 40 mg daily. 7. Amlodipine/benazepril 5/20 mg 1 tab p.o. daily. 8. Aspirin 81 mg daily. 9. Spironolactone/hydrochlorothiazide 1/2 tab p.o. daily. 10. Metoprolol succinate 25 mg p.o. daily. Of note, the patient is a fairly poor historian of his medications. Many of these were cross-referenced through outpatient pharmacy records. ALLERGIES: No known drug allergies. FAMILY HISTORY: His mother was born in 1946, has a history of poor venous circulation status post amputation, she is alive. Father is in his 70s, has hypertension, diabetes, and hyperlipidemia. He has 1 brother who he thinks is relatively healthy. 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 He is a former smoker of mostly marijuana ( he denies significant cigarette use). He drinks alcohol occasionally. He wants to be a full code. Medical surrogate is his , [place]. REVIEW OF SYSTEMS: A complete 14-point review of systems is negative except as per HPI. PHYSICAL EXAMINATION GENERAL APPEARANCE: No acute distress. VITAL SIGNS: Temperature 98.0, pulse rate 106, respiratory rate 16, satting 97 % on room air, blood pressure 147/77. HEENT: Normocephalic, atraumatic. Pupils are equal, round, and reactive to light. Extraocular motions are intact. No scleral icterus. LUNGS: Clear to auscultation bilaterally with no wheezing, rales, or rhonchi. CARDIOVASCULAR: Tachycardic but regular. No murmurs, rubs, or gallops. ABDOMEN: Soft, nontender, nondistended. EXTREMITIES: Warm, well perfused. No peripheral edema. NEURO: Cranial nerves II through XII intact. SKIN: No lesions or rashes. DIAGNOSTIC STUDIES/LAB DATA: White count 5.1, hemoglobin 13.5, hematocrit 39, platelets 256. INR 1.00. Sodium 133, potassium 4.4, chloride 98, carbon dioxide 28, BUN 16, creatinine 1.02, glucose 472, magnesium 2.0. Total bili 0.5 , AST 16, ALT 17, alk phos 78. Troponin 0.03. BNP 29. Albumin 4.4. Triglycerides 159, LDL 16, HDL 54. Chest x-ray, formal read pending. Per my read, no acute cardiopulmonary process. EKG showed sinus tachycardia with heart rate [address] depressions in V5, V4, and V2 and one in aVL. ASSESSMENT AND PLAN: Delvis Lehman is a 53-year-old male with past medical history of insulin-dependent diabetes mellitus, coronary artery disease, medication noncompliance, hypertension, hyperlipidemia, presenting with 8/10 chest pressure, relieved after 2 nitroglycerin and elevated troponin at 0.03. I rate his heart score as a 6 given his mildly suspicious story, nonspecific repolarization disturbances, his age, and history of risk factors. He is being admitted to acute coronary syndrome rule out, trend troponins q.3 hours, repeat EKG intervals in the morning, and continue sublingual nitroglycerin p.r.n. He has been quite tachycardic here and does admit to some anxiety. We can start metoprolol tartrate 25 mg p.o. q.6 hours, hold his home succinate, continue aspirin, give him Lipitor 80 mg in the emergency room and daily ( substitute for his home Crestor, it is nonformulary). Of note, he is also on Repatha and his LDL is actually quite low at 16, but clearly poorly-controlled diabetes in the setting of medication noncompliance and dietary indiscretions with a glucose of 472. I am going to start long-acting insulin Lantus at 30 units tonight, sliding scale insulin q. a.c., h.s., repeat A1c. At home, he is on Trulicity, which also he sometimes misses. Continue his Brilinta as well 90 b.i.d., which he is sometimes noncompliant with. For his history of hypertension , metoprolol tartrate as above. Can continue his amlodipine 5 mg and substitute lisinopril for his benazepril. I am going to hold his spironolactone for now (relatively poor historian). Has increased dose of beta - helio. I will get an echocardiogram in the morning, try to get records from Dr. Montgomery's office, potentially could be a candidate to stay an extra day for cardiac stress test. Continue heart healthy, carbohydrate consistent diet. He is a full code. Medical surrogate is his , [place]. [id number]/[facility] #: [id number] MTDD
[2019-04-10] MEDS ORDERED: Diazepam TAB(*) 5 MG PO PRN (14:01)
[2019-04-10] MEDS ORDERED: diPHENhydraMINE PO* 25 MG PO PRN (14:01)
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
--- NOTE | 2019-04-10 15:31 | PN ---
Subjective Date of Service: 04/10/19 Interval History: Patient is feeling ok today. Patient denies CP, SOB, F/C, N/V, abdominal pain, diarrhea, dizziness, palpitations, or other pain. Family History: Unchanged from Admission Social History: Unchanged from Admission Past Medical History: Unchanged from Admission Objective Active Medications: Amlodipine Besylate (Norvasc Tab*) 5 mg PO DAILY [facility] Last Admin: 04/10/19 08:21 Dose: 5 mg Aspirin (Aspirin 81 Mg Chew Tab*) 81 mg PO DAILY [facility] Last Admin: 04/10/19 08:21 Dose: 81 mg Atorvastatin Calcium (Lipitor*) 80 mg PO 1700 [facility] Dextrose (D50w Syringe 50 Ml*) 12.5 gm IV PUSH .FOR FS < 60 - SS PRN PRN Reason: FS < 60 Diazepam (Valium Tab(*)) 2.5 mg PO ONCE PRN PRN 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 [employer] Diphenhydramine HCl (Benadryl Po*) 25 mg PO ONCE PRN PRN 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 [employer] Heparin Sodium (Porcine) (Heparin Vial(*)) 0 units IV .PER PROTOCOL [facility] Last Admin: 04/10/19 14:48 Dose: 4,000 units Heparin Sodium/Dextrose (Heparin Drip 25,000 Units(*)) 25,000 units in 500 mls @ 0 mls/hr IV PER RATE [facility]; Protocol Last Admin: 04/10/19 05:06 Dose: 18 mls/hr Sodium Chloride (Ns 0.9% 1000 Ml) 1,000 mls @ 100 mls/hr IV .per rate [facility] Insulin Glargine (Lantus(*)) 30 units SUBCUT Q24HR [facility] Last Admin: 04/10/19 02:55 Dose: 30 units Insulin Human Lispro (Humalog*) 0 units SUBCUT Q4H [facility]; Protocol Lisinopril (Prinivil Tab*) 20 mg PO DAILY [facility] Last Admin: 04/10/19 08:20 Dose: 20 mg Metoprolol Tartrate (Lopressor Tab*) 25 mg PO 0300,0900,1500,2100 [facility] Nitroglycerin (Nitroglycerin Tab 0.4 Mg*) 0.4 mg SL Q5M PRN PRN Reason: chest pain Ticagrelor (Brilinta*) 90 mg PO BID [facility] Last Admin: 04/10/19 08:22 Dose: 90 mg Vital Signs - 8 hr 04/10/19 04/10/19 04/10/19 10:34 11:47 13:35 Temperature 98.4 F 97.9 F 98.0 F Pulse Rate 76 80 78 Respiratory 18 16 18 Rate Blood Pressure 150/90 142/84 148/89 (mmHg) O2 Sat by Pulse 100 97 100 Oximetry Oxygen Devices in Use Now: Nasal Cannula Appearance: Patient is a 53yo male who appears stated age and is sitting in the bed in NAD. Eyes: No Scleral Icterus, PERRLA Ears/Nose/Mouth/Throat: NL Teeth, Lips, Gums, Clear Oropharnyx, Mucous Membranes Moist Neck: NL Appearance and Movements; NL JVP, Trachea Midline Respiratory: Symmetrical Chest Expansion and Respiratory Effort, Clear to Auscultation Cardiovascular: NL Sounds; No Murmurs; No JVD, RRR, No Edema Abdominal: NL Sounds; No Tenderness; No Distention, No Hepatosplenomegaly Lymphatic: No Cervical Adenopathy Extremities: No Edema, No Clubbing, Cyanosis Skin: No Rash or Ulcers, No Nodules or Sclerosis Neurological: Alert and Oriented x 3, NL Sensation, NL Muscle Strength and Tone , - - CN II-XII intact. Result Diagrams: 04/10/19 00:41 04/10/19 00:41 Assess/Plan/Problems-Billing Assessment: Pateint is a 53yo male with a PMH for CAD, HTN, HLD, here with CP and elevated trop up to 8 and diagnosed with NSTEMI pending cath. - Patient Problems (1) NSTEMI (non-ST elevated myocardial infarction) Current Visit: Yes Status: Acute Code(s): I21.4 - NON-ST ELEVATION (NSTEMI) MYOCARDIAL INFARCTION SNOMED Code(s): 69400278 Comment: - Appreciate Cardiology input - With CP earlier, now trop up to 8.8 - CP free - On Heparin drip, BB, Aspirin, Brilinta, Max Dose Lipitor - Planned for Cath in AM. (2) Hyperlipidemia Current Visit: No Status: Acute Code(s): E78.5 - HYPERLIPIDEMIA, UNSPECIFIED SNOMED Code(s): 75454753 Comment: - On both Statin Max Dose and PCSK9 inhibitor with LDL of 16 - Continue current regimen. (3) Type 2 diabetes mellitus Current Visit: No Status: Acute Comment: - FSBG ACHS with Lispro SSI - 30u Lantus - Chronically uncontrolled, A1c 12.2 - Restart Trulicity at D/C. (4) HTN (hypertension) Current Visit: No Status: Acute Code(s): I10 - ESSENTIAL (PRIMARY) HYPERTENSION SNOMED Code(s): 73761814 Comment: - Slightly elevated - Lisinopril, BB, and amlodipine - In setting of NSTEMI, increase amlodipine for BP control. (5) DVT prophylaxis Current Visit: Yes Status: Acute Code(s): Z29.9 - ENCOUNTER FOR PROPHYLACTIC MEASURES, UNSPECIFIED SNOMED Code(s): 834861567 Comment: - Heparin Drip (6) Full code status Current Visit: Yes Status: Acute Code(s): Z78.9 - OTHER SPECIFIED HEALTH STATUS SNOMED Code(s): 260741313 Status and Disposition: Inpatient for NSTEMI
[2019-04-10] MEDS ORDERED: amLODIPine TAB* 5 MG PO ONE (15:35)
[2019-04-10] MEDS ORDERED: Atorvastatin* 80 MG TAB PO SCH (17:00)
[2019-04-10] MEDS ORDERED: Metoprolol Tartrate TAB* 25 MG PO SCH (21:00)
[2019-04-11] MEDS: Insulin LISPRO* 1 UNITS UNIT SUBCUT SCH ×4 (04:28→16:21)
[2019-04-11 05:39] LABS: ABS Eosinophils 0.2 10^3/ul (0-0.6); ABS Lymphocytes 1.9 10^3/ul (1.0-4.8); ABS Monocytes 0.5 10^3/ul (0-0.8); ABS Neutrophils 2.6 10^3/ul (1.5-7.7); Eosinophil % 3.9 %; Hematocrit 39 % (42-52); Hemoglobin 13.6 g/dL (14.0-18.0); Lymphocyte % 35.5 %; Mean Corpuscular HGB Conc 35 g/dL (31-36); Mean Corpuscular Hemoglobin 31 pg (27-31); Mean Corpuscular Volume 88 fL (80-94); Mean Platelet Volume 8.2 fL (7.4-10.4); Platelet Count 261 10^3/uL (150-450); Red Blood Count 4.45 10^6 /uL (4.18-5.48); Red Cell Distribution Width 13 % (10-15); White Blood Count 5.3 10^3/uL (3.5-10.8)
[2019-04-11] MEDS ORDERED: NS 0.9% 1000 ML** 1,000 ML IV SCH ×2 (06:00→17:00)
[2019-04-11 06:04] LABS: Troponin I 3.42 ng/mL (<0.03)
[2019-04-11 06:12] LABS: Anion Gap 8 mmol/L (2-11); CO2 Carbon Dioxide 24 mmol/L (22-32); Calcium 8.6 mg/dL (8.6-10.3); Chloride 103 mmol/L (101-111); Magnesium 1.9 mg/dL (1.9-2.7); Potassium 3.5 mmol/L (3.5-5.0); Sodium 135 mmol/L (135-145)
[2019-04-11 06:17] LABS: BUN/Creatinine Ratio 16.9 (8-20); Blood Urea Nitrogen 15 mg/dL (6-24); EGFR African American 108.6 (>60); EGFR Non-African American 89.8 (>60); Glucose 217 mg/dL (70-100)
[2019-04-11] MEDS: Metoprolol Tartrate TAB* 50 mg PO SCH ×2 (07:04→08:54)
[2019-04-11] MEDS ORDERED: Perflutren Lipid Microsphere* 3 ML VIAL ONE (07:50)
[2019-04-11] MEDS: Insulin GLARGINE(*) 1 UNITS UNIT SUBCUT SCH (08:51)
[2019-04-11] MEDS: Lisinopril TAB* 10 MG PO SCH (08:52)
[2019-04-11] MEDS: Ticagrelor* 90 MG TAB PO SCH (08:53)
[2019-04-11] MEDS: Aspirin 81 mg CHEW TAB* 81 MG TAB.CHEW PO SCH (08:53)
[2019-04-11] MEDS ORDERED: amLODIPine TAB* 5 MG PO SCH (09:00)
--- NOTE | 2019-04-11 09:11 | ECHO ---
*[facility]* [place] [address] Fax #: [phone] Transthoracic Echocardiogram Patient: Delvis Lehman : 1965 Study Date: 04/11/2019 Age: 53 Gender: M HR: 81 bpm Height: 66 in /167.6 cm BSA: 2.05 m^2 Weight: 212.6 lb /96.6 kg BMI: 34.4 kg/m^2 *[employer]: * Saundra Raimrez CS RN *Referring Physician: * Frank Pineda *Reading Physician: * Farshad Adams MD Indications: Chest Pain, unspecified. SOB. Abnormal EKG. History: Coronary artery disease. CABG. Coronary stents. Risk factors: Former tobacco use. Hypertension. Diabetes mellitus. Dyslipidemia. Conclusions Summary: - Left ventricle: The cavity size is normal. Wall thickness is mildly to moderately increased. Systolic function is mildly to moderately reduced. The estimated ejection fraction is 40-45%. - Regional wall motion abnormality: Moderate hypokinesis of the mid inferior myocardium; mild hypokinesis of the apical inferior myocardium. - Right ventricle: Systolic function is normal. - Mitral valve: There is trace regurgitation. - Aortic valve: There is no evidence of stenosis. - Tricuspid valve: There is trace regurgitation. - Pulmonary arteries: Systolic pressure can not be accurately estimated. Study data: Transthoracic echocardiogram. Procedure: Transthoracic echocardiography was performed. Image quality was fair. The study was technically limited due to body habitus and smoking history. Intravenous Definity 5.5 ml was administered to enhance imaging. Complete 2D, spectral Doppler, and color flow Doppler. Location: Bedside. Patient status: Observation. Patient room number: 432. Rhythm: Normal sinus rhythm. Findings Left ventricle: The cavity size is normal. Wall thickness is mildly to moderately increased. Systolic function is mildly to moderately reduced. The estimated ejection fraction is 40-45%. Regional wall motion abnormalities: Hypokinesis of the basal-midinferior and inferoseptal myocardium. Moderate hypokinesis of the mid inferior myocardium; mild hypokinesis of the apical inferior myocardium. There is no consistent Doppler evidence of clinically significant diastolic dysfunction. Right ventricle: The cavity size is normal. Systolic function is normal. Ventricular septum: Ventricular septal wall motion has a postoperative appearance. Left atrium: The atrium is normal in size. Right atrium: The atrium is normal in size. Mitral valve: The leaflets are mildly thickened. There is no evidence of stenosis. There is trace regurgitation. Aortic valve: The leaflets are mildly thickened. There is no evidence of stenosis. There is no significant regurgitation. Tricuspid valve: The leaflets are normal thickness. There is no evidence of stenosis. There is trace regurgitation. Pulmonic valve: The valve is structurally normal. There is no evidence of stenosis. There is trace regurgitation. Aorta: Aortic root: The aortic root is not dilated. Ascending aorta: The ascending aorta is not dilated. Aortic arch: The aortic arch is not dilated. Pericardium: There is no pericardial effusion. Pulmonary arteries: The main pulmonary artery is normal-sized. Systolic pressure can not be accurately estimated. Systemic veins: Inferior vena cava: Not well visualized. Measurements Left ventricle Value Ref Aortic valve Value Ref SALAS, LAX (L) 4.1 cm 4.2 - 5.8 Gillian diam, ED 2.0 cm ---- ESD, LAX 3.7 cm 2.5 - 4.0 Peak v, S 1.33 m/sec ---- FS, LAX (L) 10 % 25 - 43 VTI, S 24.2 cm ---- PW, ED (H) 1.2 cm 0.6 - 1.0 Mean grad, S 4.0 mm Hg ---- IVS/PW, ED 1.07 Peak grad, S 7.0 mm Hg ---- E', lat gillian, TDI (L) 7.2 cm/sec >=10.0 LVOT/AV, VTI ratio 0.74 -- -- E/e', lat gillian, 11 TDI Mitral valve Value Ref E', med gillian, TDI 7.5 cm/sec >=7.0 Peak E 0.8 m/sec -- -- E/e', med gillian, 11 Peak A 0.74 m/sec ---- TDI Decel time 197 ms ---- E', avg, TDI 7.4 cm/sec Peak grad, D 2.5 mm Hg ---- E/e', avg, TDI 11 <=14 Peak E/A ratio 1.1 -- -- LVOT Value Ref Pulmonic valve Value Ref Peak zaid, S 0.89 m/sec Peak v, S 0.85 m/sec ---- VTI, S 17.9 cm Peak grad, S 3.0 mm Hg ---- Mean grad, S 2 mm Hg Aortic root Value Ref Ventricular septum Value Ref Root diam 3.1 cm <4.2 IVS, ED (H) 1.3 cm 0.6 - 1.0 Ascending aorta Value Ref Right ventricle Value Ref AAo AP diam, S 3.0 cm ---- SALAS, LAX 2.3 cm AAo AP diam/bsa, S 1.5 cm/m^2 ---- SALAS minor ax, (H) 4.1 cm 1.9 - 3.5 A4C mid Aortic arch Value Ref Arch diam 2.3 cm ---- Left atrium Value Ref AP dim, ES 3.70 cm 3.00 - Decending aorta Value Ref 4.00 Delano peak zaid 0.53 m/sec ---- ML dim, A4C 3.8 cm SI dim, A4C 4.9 cm Vol/bsa, ES, 1-p 20 ml/m^2 12 - 37 A4C Vol/bsa, ES, A/L 21 ml/m^2 16 - 34 Right atrium Value Ref ML dim, ES, A4C 3.9 cm 2.6 - 4.4 SI dim, ES, A4C 4.5 cm 3.4 - 5.3 Legend: (L) and (H) ronn values outside specified reference range. Prepared and electronically signed by Farshad Adams MD 04/11/2019 09:10
[2019-04-11] MEDS ORDERED: fentaNYL* 50 MCG/ML 2 ML VIAL (100 MCG VIAL) ONE (10:19)
[2019-04-11] MEDS ORDERED: Midazolam* 1 MG/ML 5 ML VIAL (5 MG) ONE (10:19)
[2019-04-11] MEDS ORDERED: Lidocaine 1% INJ* 10 MG/ML 30 ML SDV ONE (10:20)
[2019-04-11] MEDS ORDERED: Heparin 2 UNITS/ML IVPREMIX* 3,000 ML IV ONE (10:20)
[2019-04-11] MEDS ORDERED: Iohexol 350 (CONTRAST) 200 ML MDV IV ONE ×2 (10:20→11:10)
[2019-04-11] MEDS ORDERED: Heparin(*) 1000 UNIT/ML 10 ML VIAL CATH LAB IV ONE (10:43)
[2019-04-11] MEDS ORDERED: Heparin DRIP 25,000 UNITS(*) 25,000 UNITS/500 ML BAG ONE (11:25)
[2019-04-11] MEDS: Heparin DRIP 25,000 UNITS(*) 25,000 UNITS/500 ML BAG IV SCH (11:26)
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
--- NOTE | 2019-04-11 15:11 | TRS ---
CC: Dr. Javed * DATE OF ADMISSION: 04/10/2019. DATE OF TRANSFER: 04/11/2019. ACCEPTING PHYSICIAN: Dr. Chandler Hannah at [facility]. ATTENDING PHYSICIAN: Dr. Teetee Fernandez * (dictated by CHRISTEL Velasco). RETAIL FIELD REPRESENTATIVE: Dr. Cm Veloz. PRIMARY CARE PHYSICIAN: Dr. Javed. PRIMARY DIAGNOSIS: NSTEMI with severe triple vessel disease. SECONDARY DIAGNOSES: 1. Insulin dependent diabetes mellitus, most recent hemoglobin A1c 12.2. 2. Hypertension. 3. Hyperlipidemia. 4. Coronary artery disease, status post three vessel CABG in 2008 and circumflex stent in 2018. 5. MORGAN with CPAP use. INTERVENTIONS DURING THIS HOSPITALIZATION: Cardiac catheterization with Dr. Veloz on 04/11/2019. Dr. Veloz found severe triple vessel disease of the [place] artery, critical mid and distal left main disease, significant disease in the proximal LAD, total occlusion of the first OM, significant disease in the proximal circumflex, as well as diffuse disease in the right coronary artery. HISTORY OF PRESENT ILLNESS/HOSPITAL COURSE: Mr. Lehman is a 53-year-old black male with a past medical history significant for coronary artery, status post CABG, poorly controlled insulin dependent diabetes mellitus, hypertension, hyperlipidemia, and MORGAN on CPAP who presented to the emergency department on due to chest pressure and shortness of breath. The patient was admitted to the hospital on 04/10/2019 due to his symptomatology. He was ultimately found to have a troponin which peaked at 8.82 and has since later downtrended this morning to 3.42. He had some EKG changes after admission which demonstrated approximately [address] depressions in the anterior leads which later resolved. The patient has been on a Heparin drip since his troponin was elevated and his most recent PTT was 62.3 at 7:00 a.m. today. The patient was continued on his home medications and he was continued on a lower dose of his home Glargine 30 units subcu. As previously mentioned, his hemoglobin A1c was checked in his hospital course which demonstrated a hemoglobin A1c of 12.2. Dr. Cm Veloz's full cardiac catheterization report is not available to me at this time; however, I did get a detailed verbal report from him indicating the reason for this patient's need for transfer. The patient was already having known total occluded vein graft from previous cardiac catheterization, he was also found to have atretic GARCIA graft to the LAD, which is also known from 2018. His GARCIA to diagonal was patent. Given that the patient is likely to need a repeat CABG or repeat high risk intervention, this is not capable at this institution and the patient is needing to be transferred to a higher level of care. Dr. Veloz spoke with an process laboratory specialist at [facility], where the patient is known. Dr. Chandler Hannah accepted the patient for transfer. The patient will be transported with left femoral sheath in place as the patient may have repeat cath upon arrival to [facility]. By the time of discharge, the patient is feeling well. He is minimally hypertensive with blood pressure in the 160s/70s. He is chest pain free at this time and in no acute distress. The patient will be transported to [facility] via ground transportation ACLS. The patient's only medication he will be receiving in the ambulance is the Heparin drip as per recommendation by Dr. Veloz. PHYSICAL EXAMINATION ON THE DAY OF TRANSFER: General: Obese, black male lying in the hospital bed, appearing comfortable and in no acute distress. HEENT: Eyes: PERRLA. Sclerae anicteric. Mucous membranes are moist. Lungs: Clear to auscultation throughout. Cardio: Regular rate and rhythm without murmurs, rubs , or gallops. Abdomen: Soft, nontender, nondistended. Extremities: No clubbing, cyanosis, or edema. Sheath in place to the left femoral region. Neuro: The patient is alert and oriented times three. ACTIVE MEDICATIONS: 1. Amlodipine 10 mg p.o. daily. 2. Aspirin 81 mg p.o. daily. 3. Lipitor 80 mg p.o. daily. 4. Dextrose 50% syringe 12.5 gm push prn fingerstick less than 60 or per sliding scale. 5. Heparin drip 25,000 units 19 ml per hour at this time (the patient will be receiving this en route to [facility]). 6. Insulin Glargine 30 units subcu daily. 7. Insulin Lispro subcu per sliding scale q.4 hours. 8. Lisinopril 20 mg p.o. daily. 9. Metoprolol Tartrate 50 mg p.o. b.i.d. 10. Nitroglycerin tab 0.4 mg sublingual q.5 minutes prn angina. 11. Normal saline 100 ml/hour. 12. Brilinta 90 mg p.o. b.i.d. SIGNIFICANT STUDIES WHILE IN THE HOSPITAL: Transthoracic echocardiogram with new reduced EF to 40 to 50 percent. Please see full report for further details. DISPOSITION: [facility] via ACLS. CONDITION ON TRANSFER: Fair. TIME SPENT: Approximately 40 minutes were spent on this discharge, approximately half that time was spent at the bedside evaluating the patient and discussing the plan of care. CHRISTEL VELASCO [id number]/[facility] #: [id number] [facility]TDD
[2019-04-11 16:09] VITALS: BP 141/78
== END 2019-04-11 17:29 | disposition short-term general hospital (02) | DRG 190 ==
LOC: ED 00:29 → MEDTELE 01:32 → INTOOBSV 16:00 → OBSVTOIN 16:00 → ICU 04-11 12:17
PROVIDERS: ADMIT Internal Medicine; ATTEND Internal Medicine
PROC: B2111ZZ Fluoroscopy of Multiple Coronary Arteries using Low Osmolar Contrast (ICD-10-PCS; 2019-04-11)
PROC: B2151ZZ Fluoroscopy of Left Heart using Low Osmolar Contrast (ICD-10-PCS; 2019-04-11)
PROC: B2181ZZ Fluoroscopy of Left Internal Mammary Bypass Graft using Low Osmolar Contrast (ICD-10-PCS; 2019-04-11)
PROC: 4A023N7 Measurement of Cardiac Sampling and Pressure, Left Heart, Percutaneous Approach (ICD-10-PCS; principal; 2019-04-11 10:15)
DX: I21.4 Non-ST elevation (NSTEMI) myocardial infarction (principal); T82.855A Stenosis of coronary artery stent, initial encounter; I25.10 Atherosclerotic heart disease of native coronary artery without angina pectoris; E11.9 Type 2 diabetes mellitus without complications; E78.00 Pure hypercholesterolemia, unspecified; I10 Essential (primary) hypertension; G47.33 Obstructive sleep apnea (adult) (pediatric); Y84.8 Other medical procedures as the cause of abnormal reaction of the patient, or of later complication, without mention of misadventure at the time of the procedure; E78.5 Hyperlipidemia, unspecified; Z95.1 Presence of aortocoronary bypass graft; Z95.5 Presence of coronary angioplasty implant and graft; Z87.891 Personal history of nicotine dependence; Z99.89 Dependence on other enabling machines and devices; Z91.14 Patient's other noncompliance with medication regimen; Y92.9 Unspecified place or not applicable; Z79.82 Long term (current) use of aspirin; Z79.02 Long term (current) use of antithrombotics/antiplatelets; Z79.4 Long term (current) use of insulin; Z79.899 Other long term (current) drug therapy
CPT/HCPCS: 36415; 71045; 80048; 80053; 80061; 83036; 83605; 83735; 83880; 84484; 85025; 85610; 85730; 93005; 93306; 93458; 99284; A9270-GY; C1887; C8929; G0378; J1644; J2250; J3010